=== PATIENT | male | born 1995 | race Caucasian/White ===

== ENCOUNTER → 2025-06-05 | Outpatient (REF) | payer OTHER | LOC: M LAB REF 10:29 | PROVIDERS: ATTEND Physician Assistant | DX: N46.9 Male infertility, unspecified (principal) ==

== ENCOUNTER → 2025-06-21 | Outpatient (REF) | payer OTHER ==
[2025-06-21 09:20] LABS: SEMEN APPEARANCE OPAQUE (OPAQUE); SEMEN VISCOSITY LIQUID (LIQUID)
[2025-06-21 09:21] LABS: SPERM CONCENTRATION 71.0 M/ml (>=15.0); WBC CONCENTRATION <=1 M/ml (<=1 M/ml)
[2025-06-21 09:22] LABS: TOTAL PROGRESSIVE SPERM 137.5 M/Ejac.
[2025-06-21 09:23] LABS: SEMEN VOLUME 5.4 ml (2.0-5.0)
== END ==
LOC: M LAB REF 08:44
PROVIDERS: ATTEND Physician Assistant
DX: N46.9 Male infertility, unspecified (principal)

== ENCOUNTER 2025-08-18 16:07 | Emergency (ER) | payer OTHER ==
[~2025-08-18] VITALS: Ht 167.6 cm; Wt 94.9 kg
[2025-08-18 17:08] LABS: BASO # 0.0 10^3/uL (0.0-0.2); BASO % 0.3 % (0.0-1.0); EOS # 0.0 10^3/uL (0.0-0.5); EOS % 0.1 % (0.0-3.0); LYMPH # 1.6 10^3/uL (1.5-5.0); LYMPH % 16.1 % (24.0-44.0); MONO # 0.9 10^3/uL (0.0-0.8); MONO % 8.7 % (2.0-8.0); NEUTROPHILS # 7.4 10^3/uL (1.5-8.5); NEUTROPHILS % 74.6 % (36.0-66.0); PLATELET COUNT, AUTOMATED 284 10^3/uL (150-450)
[2025-08-18 17:38] LABS: ALT/SGPT 36 U/L (7.0-40); AST/SGOT 24 U/L (<34); CALCIUM LEVEL 10.4 MG/DL (8.5-10.1); CARBON DIOXIDE LEVEL 25 MMOL/L (20-31); CHLORIDE LEVEL 97 MMOL/L (98-107); CREATININE FOR GFR 1.12 MG/DL (0.70-1.30); GLOMERULAR FILTRATION RATE > 90.0 (>60); POTASSIUM SERUM 4.3 MMOL/L (3.5-5.1); SODIUM LEVEL 141 MMOL/L (136-145)
[2025-08-18] MEDS: NS (Normal Saline) 0.9% 1,000 ML IV ONE (17:52)
[2025-08-18] MEDS: ONDANSETRON 4MG/2ML VIAL IV ONE (17:52)
[2025-08-18] MEDS ORDERED: ONDA-282 PO (18:42)
[2025-08-18 18:45] VITALS: BP 140/80; TEMP 97.6; O2SAT 100
== END 2025-08-18 19:35 | disposition home or self-care (01) ==
LOC: M ED 16:07
DX: A05.9 Bacterial foodborne intoxication, unspecified (principal); R11.2 Nausea with vomiting, unspecified; E86.0 Dehydration; F17.200 Nicotine dependence, unspecified, uncomplicated; Z79.899 Other long term (current) drug therapy
CPT/HCPCS: 80053; 83690; 85025; 96361; 96374; 99284; J2405

== ENCOUNTER 2025-08-20 09:42 | Emergency (ER) | payer OTHER ==
[~2025-08-20] VITALS: Ht 167.6 cm; Wt 95.7 kg
[~2025-08-20 09:42] MED LIST: ONDA-282 PO
[2025-08-20] MEDS: ONDANSETRON 4MG ORAL DISINTEGRATING TAB PO ONE (10:55)
[2025-08-20] MEDS: NS (Normal Saline) 0.9% 1,000 ML IV ONE (13:29)
[2025-08-20 13:39] LABS: BASO # 0.0 10^3/uL (0.0-0.2); BASO % 0.3 % (0.0-1.0); EOS # 0.1 10^3/uL (0.0-0.5); EOS % 1.1 % (0.0-3.0); LYMPH # 2.0 10^3/uL (1.5-5.0); LYMPH % 20.5 % (24.0-44.0); MONO # 1.1 10^3/uL (0.0-0.8); MONO % 11.5 % (2.0-8.0); NEUTROPHILS # 6.4 10^3/uL (1.5-8.5); NEUTROPHILS % 66.4 % (36.0-66.0); PLATELET COUNT, AUTOMATED 271 10^3/uL (150-450)
[2025-08-20 14:05] LABS: CALCIUM LEVEL 10.2 MG/DL (8.5-10.1); CARBON DIOXIDE LEVEL 32 MMOL/L (20-31); CHLORIDE LEVEL 91 MMOL/L (98-107); CREATININE FOR GFR 1.03 MG/DL (0.70-1.30); GLOMERULAR FILTRATION RATE > 90.0 (>60); POTASSIUM SERUM 3.7 MMOL/L (3.5-5.1); SODIUM LEVEL 135 MMOL/L (136-145)
[2025-08-20 15:12] VITALS: BP 138/73; TEMP 97.9; O2SAT 100
== END 2025-08-20 15:16 | disposition home or self-care (01) ==
LOC: M ED 09:42
DX: R11.2 Nausea with vomiting, unspecified (principal); R19.7 Diarrhea, unspecified; Z79.899 Other long term (current) drug therapy